=== PATIENT | male | born 1945 ===

== ENCOUNTER 2018-02-26 11:08 | Outpatient (CLI) | payer OTHER ==
[~2018-02-26] VITALS: Ht 177.8 cm; Wt 76.2 kg
== END 2018-02-26 11:20 | disposition home or self-care (01) ==
LOC: OFIC 805 11:08
DX: H61.23 Impacted cerumen, bilateral (principal); J31.0 Chronic rhinitis; J38.02 Paralysis of vocal cords and larynx, bilateral; G71.0 Muscular dystrophy; Z93.0 Tracheostomy status

== ENCOUNTER 2018-07-02 11:07 | Outpatient (CLI) | payer OTHER ==
[~2018-07-02] VITALS: Ht 152.4 cm; Wt 76.2 kg
== END 2018-07-02 11:20 | disposition home or self-care (01) ==
LOC: OFIC 805 11:07
DX: J31.0 Chronic rhinitis (principal); H61.23 Impacted cerumen, bilateral; J38.02 Paralysis of vocal cords and larynx, bilateral; Z93.0 Tracheostomy status

== ENCOUNTER 2019-02-25 10:56 | Outpatient (CLI) | payer OTHER ==
[~2019-02-25] VITALS: Ht 152.4 cm; Wt 77.1 kg
== END 2019-02-25 11:15 | disposition home or self-care (01) ==
LOC: OFIC 805 10:56
DX: J31.0 Chronic rhinitis (principal); J38.02 Paralysis of vocal cords and larynx, bilateral; H61.21 Impacted cerumen, right ear; Z93.0 Tracheostomy status

== ENCOUNTER 2019-06-24 09:55 | Outpatient (CLI) | payer OTHER ==
[~2019-06-24] VITALS: Ht 152.4 cm; Wt 74.8 kg
== END 2019-06-24 10:53 | disposition home or self-care (01) ==
LOC: OFIC 805 09:55
DX: Z93.0 Tracheostomy status (principal); G71.09 Other specified muscular dystrophies; J31.0 Chronic rhinitis

== ENCOUNTER 2022-10-29 14:38 | Emergency (ER) | payer OTHER ==
[~2022-10-29] VITALS: Ht 154.9 cm; Wt 74.8 kg
[2022-10-29] MEDS ORDERED: PLAVIX75 MG (16:01)
[2022-10-29] MEDS ORDERED: JANUMET XR 50-1 EAC1 PO (16:01)
[2022-10-29] MEDS ORDERED: PROAIR RESPICL90 MCG (16:01)
[2022-10-29] MEDS ORDERED: ADVAIR HFA 115/12 GM (16:01)
[2022-10-29] MEDS ORDERED: COZAAR25 MG (16:02)
[2022-10-29] MEDS ORDERED: CRESTOR10 MG (16:02)
[2022-10-29] MEDS ORDERED: GLIMEPIRIDE1 MG (16:02)
== END 2022-10-29 21:54 | disposition home or self-care (01) ==
LOC: ER 14:38
DX: R07.89 Other chest pain (principal); Z99.81 Dependence on supplemental oxygen; G71.09 Other specified muscular dystrophies; H61.23 Impacted cerumen, bilateral; J31.0 Chronic rhinitis